=== PATIENT | female | born 1950 | race Caucasian/White ===

== ENCOUNTER → 2018-01-06 | Day surgery (SDC) | payer OTHER ==
[~2018-01-06] MED LIST: BUPIVACAINE MPF 0.25% 10 ML VIAL. ONE; DEXAMETHASONE SOD PHOS 4 MG/ML VIAL ONE; IOHEXOL 300 MG/ML 50 ML VIAL. ONE; LIDOCAINE 1% PF 30 ML VIAL. ONE
== END | disposition home or self-care (01) ==
LOC: SURG 12:17
PROVIDERS: ATTEND Anesthesiology Pain Medicine
DX: M54.16 Radiculopathy, lumbar region (principal); M19.90 Unspecified osteoarthritis, unspecified site; Z90.710 Acquired absence of both cervix and uterus; Z98.890 Other specified postprocedural states
CPT/HCPCS: 64483; J1100; J2001; J3490; Q9967

== ENCOUNTER → 2018-03-03 | Outpatient (CLI) | payer OTHER | END | disposition home or self-care (01) | LOC: SURG 13:59 | PROVIDERS: ATTEND Anesthesiology Pain Medicine | DX: M47.816 Spondylosis without myelopathy or radiculopathy, lumbar region (principal); G89.4 Chronic pain syndrome | CPT/HCPCS: 99213 ==

== ENCOUNTER → 2018-05-12 | Outpatient (CLI) | payer OTHER | END | disposition home or self-care (01) | LOC: SURG 10:23 | PROVIDERS: ATTEND Anesthesiology Pain Medicine | DX: M47.816 Spondylosis without myelopathy or radiculopathy, lumbar region (principal); G89.4 Chronic pain syndrome; Z90.710 Acquired absence of both cervix and uterus | CPT/HCPCS: 99212 ==